=== PATIENT | male | born 2000 | race Caucasian/White ===

== ENCOUNTER 2022-05-27 11:49 | Emergency (ER) | payer OTHER ==
[~2022-05-27] VITALS: Ht 172.7 cm; Wt 56.2 kg
== END 2022-05-27 14:53 | disposition home or self-care (01) ==
LOC: ER 11:49
DX: K52.9 Noninfective gastroenteritis and colitis, unspecified (principal); Z88.8 Allergy status to other drugs, medicaments and biological substances; Z91.018 Allergy to other foods; Z20.822 Contact with and (suspected) exposure to COVID-19